=== PATIENT | female | born 1980 | race Caucasian/White ===

== ENCOUNTER 2019-01-21 20:17 | Emergency (ER) | payer MEDICAID ==
[~2019-01-21] VITALS: Ht 167.6 cm; Wt 79.7 kg
[2019-01-21 20:20] VITALS: BP 139/60; PULSE 62; RESP 21; Ht 167.6 cm; Wt 79.7 kg
== END 2019-01-22 00:04 | disposition home or self-care (01) ==
LOC: FTE 20:17
DX: O20.8 Other hemorrhage in early pregnancy (principal); Z3A.01 Less than 8 weeks gestation of pregnancy
CPT/HCPCS: 36415; 76801; 76817; 80053; 81001; 84702; 85025; 86900; 86901; Z7502